=== PATIENT | female | born 1965 | race Caucasian/White ===

== ENCOUNTER 2020-04-03 18:45 | Emergency (ER) | payer OTHER ==
--- NOTE | 2020-04-03 20:29 | EDM.PDOC ---
ED HPI GENERAL MEDICAL PROBLEM - General Chief Complaint: Headache Stated Complaint: UNABLE TO GET WORDS/HIGH BP Time Seen by Provider: 04/03/20 19:33 Source of Information: Reports: Patient, Significant Other (Fianc) History Limitations: Reports: No Limitations - History of Present Illness INITIAL COMMENTS - FREE TEXT/NARRATIVE: Ms. Basurto is a most pleasant 54-year-old woman who now presents the ED stating that she developed right eye vision change in the form of "feathery" vision around 17:00 this evening (note that the triage note indicated that the patient experienced right eye pain - the patient denied that to me). It lasted for about 20 minutes, after which she developed a pressure-type headache felt in the back of her head, however, around that time she also developed a brief expressive aphasia, where she spoke Ukrainian words, but nonsensically, such as instead of saying "I'm going to put on a shirt", she would say something like "I'm going to put on a napkin", according to her fianc. He tells me that the aphasia lasted only about 10 seconds. The patient was unaware that her words were not making sense. The patient did not have associated nausea, photophobia, phonophobia, or neurologic symptoms such as tingling, numbness, or weakness. The patient immediately recognized that her vision changes and subsequent headache were due to an ocular migraine, which she states she has been suffering from since she was a teenager, although she states that she has never been evaluated by a Neurologist and has never previously been on an anti-migraine me dication, primarily because her migraines typically last about 20 minutes and occur relatively infrequently, perhaps once or twice a year. She came to the ED tonight, however, because she has never previously had an expressive aphasia. The patient states that she usually takes a couple of aspirin to treat her migraines, which is what she did tonight. The patient states that she had a CT of her head when she was 15 years old, and an MRI of her head around 1999, both of which were normal. Here in the ED, the patient's initial BP is found to be elevated at 170/106, with slight tachypnea of 22 rpm. Otherwise, she is hemodynamically stable, afebrile, saturating 98% on room air. At this time, the patient states that she feels a very mild pressure sensation in the back of her head, too mild to call a headache. Prior to tonight, the patient denies having a recent fever, chills, sore throat, ear pain, nasal or sinus congestion, cough, dyspnea, chest pain, palpitations, nausea, vomiting, constipation, diarrhea, abdominal pain, urinary symptoms, recent weight gain or weight loss, recent bloody bowel movements or black bowel movements, recent joint aches, headaches, or rashes. The patient does not have a PCP. Her Route Delivery Service Driver is Dr. Susana Rodriguez. She has not received an influenza vaccine this season, and declined an offer to get one here in the ED. - Related Data Allergies Allergy/AdvReac Type Severity Reaction Status Date / Time propoxyphene [From Darvon] Allergy Severe Lightheaded Verified 04/03/20 19:11 ness Home Meds: Home Meds Rizatriptan Benzoate [Rizatriptan] 1 tab PO ASDIRECTED PRN #3 tab.rapdis 04/03/20 [Rx] norgestrel-ethinyl estradioL [Elinest-28 Tablet] 1 tab PO DAILY 04/03/20 [History] Past Medical History [employer] WORK[employer] History: Reports: Other (See Below) (IUD) Neurological History: Reports: Migraines (ocular) - Past Surgical History HEENT Surgical History: Reports: Oral Surgery (dental extractions) GI Surgical History: Reports: Colonoscopy (x 1), Hernia, Abdominal (umbilical) Social & Family History - Tobacco Use Tobacco Use Status *Q: Never Tobacco User - Caffeine Use Caffeine Use: Reports: Coffee - Alcohol Use Alcohol Use History: Yes Alcohol Use Frequency: Socially - Recreational Drug Use Recreational Drug Use: No - Living Situation & Occupation Living situation: Reports: , Alone ([facility]) ED ROS GENERAL - Review of Systems Review Of Systems: Comprehensive ROS is negative, except as noted in HPI. - Physical Exam Exam: See Below Exam Limited By: No Limitations General Appearance: Alert, WD/WN, No Apparent Distress Eye Exam: Bilateral Eye: EOMI, Normal Inspection, PERRL Ears: Normal External Exam, Normal Canal, Hearing Grossly Normal, Normal TMs Nose: Normal Inspection, Normal Mucosa, No Blood Throat/Mouth: Normal Inspection, Normal Lips, Normal Teeth, Normal Gums, Normal Oropharynx, Normal Voice, No Airway Compromise Head Exam: Atraumatic, Normocephalic Neck: Normal Inspection, Supple, Non-Tender, Full Range of Motion. No: Lymphade nopathy (L), Lymphadenopathy (R) Respiratory/Chest: No Respiratory Distress, Lungs Clear, Normal Breath Sounds, No Accessory Muscle Use Cardiovascular: Normal Peripheral Pulses, Regular Rate, Rhythm, No Edema, No Gallop, No JVD, No Murmur, No Rub GI/Abdominal: Normal Bowel Sounds, Soft, Non-Tender, No Organomegaly, No Diste ntion, No Abnormal Bruit, No Mass Neuro Exam (Abbreviated): Alert, Oriented, CN II-XII Intact, Normal Cognition, No Motor/Sensory Deficits Back Exam: Normal Inspection, Full Range of Motion, NT Extremities: Normal Inspection, Normal Range of Motion, No Pedal Edema, Normal Capillary Refill Psychiatric: Normal Affect Skin Exam: Warm, Dry, Intact, Normal Color, No Rash Course - Vital Signs Last Recorded V/S: Last Vital Signs Temp 37.2 C 04/03/20 19:08 Pulse Resp 22 H 04/03/20 19:08 BP 178/106 H 04/03/20 19:08 Pulse Ox 98 04/03/20 19:08 - Orders/Labs/Meds Orders: Active Orders 24 hr Category Date Time Status Head wo Cont [CT] Stat Exams 04/03/20 19:27 Taken Labs: Laboratory Tests 04/03/20 04/03/20 Range/Units 19:15 19:15 WBC 5.94 (3.98-10.04) K/mm3 RBC 4.38 (3.98-5.22) M/mm3 Hgb 14.0 (11.2-15.7) gm/dl Hct 42.4 (34.1-44.9) % MCV 96.8 H (79.4-94.8) fl MCH 32.0 (25.6-32.2) pg MCHC 33.0 (32.2-35.5) g/dl RDW Std Deviation 46.0 (36.4-46.3) fL Plt Count 363 (182-369) K/mm3 MPV 9.3 L (9.4-12.3) fl Neut % (Auto) 44.3 (34.0-71.1) % Lymph % (Auto) 44.4 (19.3-51.7) % Woodson % (Auto) 9.6 (4.7-12.5) % Eos % (Auto) 1.0 (0.7-5.8) Baso % (Auto) 0.5 (0.1-1.2) % Neut # (Auto) 2.63 (1.56-6.13) K/mm3 Lymph # (Auto) 2.64 (1.18-3.74) K/mm3 Woodson # (Auto) 0.57 H (0.24-0.36) K/mm3 Eos # (Auto) 0.06 (0.04-0.36) K/mm3 Baso # (Auto) 0.03 (0.01-0.08) K/mm3 Sodium 140 (136-145) mEq/L Potassium 3.8 (3.5-5.1) mEq/L Chloride 104 (98-107) mEq/L Carbon Dioxide 25 (21-32) mEq/L Anion Gap 14.8 (5-15) BUN 13 (7-18) mg/dL Creatinine 0.9 (0.55-1.02) mg/dL Est Cr Clr Drug Dosing 68.68 mL/min Estimated GFR (MDRD) > 60 (>60) mL/min BUN/Creatinine Ratio 14.4 (14-18) Glucose 99 (74-106) mg/dL Calcium 9.5 (8.5-10.1) mg/dL Total Bilirubin 0.4 (0.2-1.0) mg/dL AST 19 (15-37) U/L ALT 17 (14-59) U/L Alkaline Phosphatase 58 (46-116) U/L Troponin I < 0.017 (0.00-0.056) ng/mL Total Protein 7.6 (6.4-8.2) g/dl Albumin 4.0 (3.4-5.0) g/dl Globulin 3.6 gm/dL Albumin/Globulin Ratio 1.1 (1-2) - Re-Assessments/Exams Free Text/Narrative Re-Assessment/Exam: 04/03/20 20:24 As above, the patient has a history of ocular migraines, and suffered one early this evening, with the addition of a very brief expressive (Warnicke's) aphasia, which she has not had before. At this time, she complains of a pressure sensation in her head, which she says is so mild that she would not call it a headache, with no visual changes, and a completely normal neurologic examination. I explained to the patient the nature of migraines, and how they are due to migratory abnormal neurologic activity, which, in this case, appears to have spread to her left temporal region, causing the Warnicke's aphasia. It is not indicative of a stroke, and does not portend to worsening migraines in the future. I offered to prescribe an anti-migraine medicine, such as rizatriptan (Maxalt), but the patient states that when she gets her ocular migraines, they are usually so brief, typically about 20 minutes, that she does not think it would be worth taking her medicine, and I can't say that I disagree with her. Some blood work, a CT of the head without contrast, and an ECG were ordered at triage. Her CBC, CMP, and troponin are all completely normal. CT of the head without contrast is read by V rad as: IMPRESSION: No hemorrhage, mass-effect or midline shift. ASSESSMENT: ASPECTS ([place] Stroke Program Early CT Score) is 10. 04/03/20 20:51 The above was discussed with the patient and her fianc. 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 I will also refer her to Dr. Pratt, to establish a PCP. Departure - Departure Time of Disposition: 20:53 Disposition: Home, Self-Care 01 Condition: Good Clinical Impression: Ocular migraine, Elevated blood pressure reading - Discharge Information *PRESCRIPTION DRUG MONITORING PROGRAM REVIEWED*: Not Applicable *COPY OF PRESCRIPTION DRUG MONITORING REPORT IN PATIENT ARSEN: Not Applicable Prescriptions: Rizatriptan Benzoate [Rizatriptan] 1 tab PO ASDIRECTED PRN #3 tab.rapdis PRN Reason: Headache Instructions: General Headache Without Cause, Uuwa-[id number] Referrals: Susana Rodriguez MD [Primary Care Provider] - Aubree Pratt MD [Physician] - Forms: ED Department Discharge Additional Instructions: You were seen in the emergency room after developing an ocular migraine around the clock this evening, with the addition of briefly being unable to make sense while talking. Based on your history and physical examination, you were suffering a more complex than usual ocular migraine. This does not indicate a worsening trend in your migraines. Stay adequately hydrated and get plenty of rest tonight in a dark, quiet place. A prescription for the anti-migraine medicine rizatriptan (Maxalt) has been sent to the [facility] located in the [employer] store. Dissolve 1 tablet in your mouth, like a lozenge, at the earliest sign of a migraine. You may repeat after 2 hours, to a maximum of 3 tablets within a 24-hour period. If this medicine works for you, please talk to your PCP to get an additional prescription. With respect to your elevated blood pressure, we recommend that you check your blood pressure 2-3 times a week, for 2 to 3 weeks, but only if you are under restful conditions = you are sitting quietly for at least 5, and preferably 15 minutes, the arm that you are checking your blood pressure on is supported with the blood pressure cuff at the height of your heart, that you are not in pain, you are not anxious, and you are not ill. The blood pressure can be checked at different times of the day, but not more than once per day. Write the numbers down, and present them to your PCP when you see them. Please follow-up with Dr. Aubree Pratt, to establish a PCP, at the next available appointment. She will have access to your ER medical records. If any other problems, please do not hesitate to return to the ER. Sepsis Event Note (ED) - Evaluation Sepsis Screening Result: No Definite Risk - Focused Exam Vital Signs: Vital Signs Temp Resp BP Pulse Ox 04/03/20 19:08 37.2 C 22 H 178/106 H 98 - My Orders Last 24 Hours: My Active Orders 04/03/20 19:27 Head wo Cont [CT] Stat - Assessment/Plan Last 24 Hours: My Active Orders 04/03/20 19:27 Head wo Cont [CT] Stat
--- NOTE | 2020-04-04 09:02 | CT ---
Head CT Technique: Multiple axial sections through the brain were obtained. Intravenous contrast was not utilized. Reconstructed coronal and sagittal images were obtained. Comparison: No prior intracranial imaging is available. Findings: Extra-axial calcification is seen along the interhemispheric falx within the right frontal region. This is felt compatible with old calcified meningioma measuring approximately 1 cm. Ventricles along with basal cisterns and sulci over the convexities are within normal limits for the patient's age. No abnormal parenchymal densities are seen. No evidence of intracranial hemorrhage. No midline shift or mass-effect is appreciated. Bone window settings were reviewed which show no acute osseous finding. Visualized paranasal sinuses and mastoid sinuses show nothing acute. Impression: 1. Small old appearing meningioma as noted above. 2. Nothing acute is seen on noncontrast head CT study. Diagnostic code #2 I agree with preliminary report from [facility], finalized on 04/03/20, 8:58 PM SENIOR QUALITY ASSURANCE SPECIALIST
== END 2020-04-03 21:30 | disposition home or self-care (01) ==
LOC: JD.ED 18:45
DX: G43.B0 Ophthalmoplegic migraine, not intractable (principal); R03.0 Elevated blood-pressure reading, without diagnosis of hypertension; Z88.8 Allergy status to other drugs, medicaments and biological substances
CPT/HCPCS: 36415; 70450; 70450-26; 80053; 84484; 85025; 99284; 99285-25